=== PATIENT | male | born 1990 | race Hispanic/Latino ===

== ENCOUNTER 2025-04-07 08:11 | Emergency (ER) | payer OTHER ==
[2025-04-07] MEDS ORDERED: Fluorescein Opthalmic Strip ONE (08:34)
== END 2025-04-07 09:02 | disposition home or self-care (01) ==
LOC: MADERS 08:11
DX: H00.014 Hordeolum externum left upper eyelid (principal); H57.8A2 Foreign body sensation, left eye
CPT/HCPCS: 99283